=== PATIENT | male | born 1975 | race Caucasian/White ===

== ENCOUNTER 2019-11-13 11:11 | Emergency (ER) | payer OTHER ==
[2019-11-13 12:13] LABS: Absolute Lymphocytes (CBC) 2.7 K/uL (0.7-4.9); Basophils % 0.5 % (0-1.3); Hematocrit 48.5 % (39.6-49.0); MPV 11.2 fL (7.6-11.3)
[2019-11-13] MEDS ORDERED: FENTANYL CITR 100 MCG/2 ML ONE (12:13)
[2019-11-13] MEDS ORDERED: NA CHLORIDE 0.9% 1,000 ML ONE (12:14)
[2019-11-13] MEDS ORDERED: CLINDAMYCIN 600MG/D5W 600 MG/50 ML BAG IV ONE (12:14)
[2019-11-13] MEDS ORDERED: LIDOCAINE 1% 20 ML MDV ONE (12:37)
--- NOTE | 2019-11-13 12:54 | EDPHYS ---
Physician Documentation [facility] Name: Gavin Mir Age: 44 yrs Sex: Male : 1975 Arrival Date: 11/13/2019 Time: 11:14 Bed 18 Private MD: Jerrell Farley P ED Physician Jaquan Meza HPI: 11/12 11:45 This 44 yrs old Male presents to ER via Unassigned with complaints of Back snw Problem, Sent By Dr. Farley. 11:45 Onset: The symptoms/episode began/occurred gradually, and became worse. Associated snw signs and symptoms: Pertinent positives: pain. Modifying factors: The patient symptoms are alleviated by nothing, the patient symptoms are aggravated by stimulation, pressure. The patient has experienced similar episodes in the past. The patient has been recently seen by a physician: Dr. Farley. Historical: - Allergies: 11:47 No Known Allergies; bp - Home Meds: 11:47 aspirin 81 mg Oral chew 1 tab once daily [Active]; losartan 50 mg oral tab 1 tab once bp daily [Active]; pravastatin 80 mg oral tab 1 tab once daily [Active]; - PMHx: 11:47 High Cholesterol; Hypertension; bp - Immunization history:: Adult Immunizations up to date. - Social history:: Smoking status: Patient denies any tobacco usage or history of. ROS: 11:44 Constitutional: Negative for fever, chills, and weight loss, Eyes: Negative for injury, snw pain, redness, and discharge, ENT: Negative for injury, pain, and discharge, Neck: Negative for injury, pain, and swelling, Cardiovascular: Negative for chest pain, palpitations, and edema, Respiratory: Negative for shortness of breath, cough, wheezing, and pleuritic chest pain, Abdomen/GI: Negative for abdominal pain, nausea, vomiting, diarrhea, and constipation, Back: Negative for injury and pain, : Negative for injury, bleeding, discharge, and swelling, MS/Extremity: Negative for injury and deformity, Neuro: Negative for headache, weakness, numbness, tingling, and seizure, Psych: Negative for depression, anxiety, suicide ideation, homicidal ideation, and hallucinations. 11:44 Skin: Positive for "Carbuncle" to right upper back. Exam: 11:43 Constitutional: This is a well developed, well nourished patient who is awake, alert, snw and in no acute distress. Head/Face: Normocephalic, atraumatic. Eyes: Pupils equal round and reactive to light, extra-ocular motions intact. Lids and lashes normal. Conjunctiva and sclera are non-icteric and not injected. Cornea within normal limits. Periorbital areas with no swelling, redness, or edema. ENT: Nares patent. No nasal discharge, no septal abnormalities noted. Tympanic membranes are normal and external auditory canals are clear. Oropharynx with no redness, swelling, or masses, exudates, or evidence of obstruction, uvula midline. Mucous membranes moist. Neck: Trachea midline, no thyromegaly or masses palpated, and no cervical lymphadenopathy. Supple, full range of motion without nuchal rigidity, or vertebral point tenderness. No Meningismus. Chest/axilla: Normal chest wall appearance and motion. Nontender with no deformity. No lesions are appreciated. Cardiovascular: Regular rate and rhythm with a normal S1 and S2. No gallops, murmurs, or rubs. Normal PMI, no JVD. No pulse deficits. Respiratory: Lungs have equal breath sounds bilaterally, clear to auscultation and percussion. No rales, rhonchi or wheezes noted. No increased work of breathing, no retractions or nasal flaring. Abdomen/GI: Soft, non-tender, with normal bowel sounds. No distension or tympany. No guarding or rebound. No evidence of tenderness throughout. Skin: Warm, dry with normal turgor. Normal color with no rashes, no lesions, and no evidence of cellulitis. MS/ Extremity: Pulses equal, no cyanosis. Neurovascular intact. Full, normal range of motion. Neuro: Awake and alert, GCS 15, oriented to person, place, time, and situation. Cranial nerves II-XII grossly intact. Motor strength 5/5 in all extremities. Sensory grossly intact. Cerebellar exam normal. Normal gait. Psych: Awake, alert, with orientation to person, place and time. Behavior, mood, and affect are within normal limits. 11:43 Back: ROM is normal, large abscessed cyst to right upper back, saw Dr. Farley and was sent to ED for surgical removal. Vital Signs: 11:43 BP 155 / 100; Pulse 89; Resp 16; Temp 98.3; Pulse Ox 98% ; Weight 86.18 kg; Height 5 bp ft. 7 in. (170.18 cm); 13:13 BP 128 / 79; Pulse 76; Resp 18; Pulse Ox 99% on R/A; em 11:43 Body Mass Index 29.76 (86.18 kg, 170.18 cm) bp MDM: 11:30 Patient medically screened. snw 12:55 Data reviewed: vital signs, nurses notes. Data interpreted: Pulse oximetry: on room air snw is 98 %. Interpretation: normal. Counseling: I had a detailed discussion with the patient and/or guardian regarding: the historical points, exam findings, and any diagnostic results supporting the discharge/admit diagnosis, the presence of at least one elevated blood pressure reading (>120/80) during this emergency department visit, the need for outpatient follow up, to return to the emergency department if symptoms worsen or persist or if there are any questions or concerns that arise at home. Response to treatment: the patient's symptoms have markedly improved after treatment. 11/12 11:47 Order name: CBC with Diff snw 11/12 11:47 Order name: Chem 7 snw 11/12 11:47 Order name: NPO; Complete Time: 11:56 snw 11/12 12:55 Order name: Wound dressing; Complete Time: 13:03 snw 11/12 12:55 Order name: Wound Care; Complete Time: 13:03 snw Administered Medications: Discontinued: NS 0.9% 1000 ml IV at 125 ml/hr continuous 12:14 Drug: fentaNYL (PF) 50 mcg Route: IVP; Site: right forearm; em 13:02 Follow up: Response: No adverse reaction; Marked relief of symptoms dm5 12:15 Drug: NS 0.9% 1000 ml Route: IV; Rate: 125 ml/hr; Site: right forearm; em 13:02 Follow up: IV Status: Order to discontinue infusion; IV Intake: 200ml dm5 12:15 Drug: Clindamycin 600 mg Route: IVPB; Infused Over: 30 mins; Site: right forearm; em 12:40 Follow up: Response: No adverse reaction; IV Status: Completed infusion; IV Intake: [id number] Disposition: 14:37 Co-signature as Attending Physician, Jaquan Meza MD. rn Disposition: 11/13/19 12:53 Discharged to Home. Impression: Cutaneous abscess of trunk. - Condition is Stable. - Discharge Instructions: Skin Abscess, Incision and Drainage, Care After. - Prescriptions for Mobic 7.5 mg Oral Tablet - take 1 tablet by ORAL route once daily take with food; 20 tablet. Doxycycline Hyclate 100 mg Oral Tablet - take 1 tablet by ORAL route every 12 hours; 20 tablet. - Medication Reconciliation Form, Thank You Letter, Antibiotic Education, Prescription Opioid Use form. - Follow up: Jerrell Farley MD; When: 1 week; Reason: Recheck today's complaints, Continuance of care, Re-evaluation by your physician. Follow up: Emergency Department; When: As needed; Reason: Fever > 102 F, Worsening of condition. Signatures: Dispatcher [employer] EDMS Elvira Pacheco, ORDER SELECTOR-C ORDER SELECTOR-Csnw Raf Mccauley, RN RN Jaquan Webster MD MD rn Peltier, Brian, RN RN bp Markwardt, Deana RN dm5 Corrections: (The following items were deleted from the chart) 13:28 12:53 11/13/2019 12:53 Discharged to Home. Impression: Cutaneous abscess of trunk. em Condition is Stable. Forms are Medication Reconciliation Form, Thank You Letter, Antibiotic Education, Prescription Opioid Use. Follow up: Jerrell Farley; When: 1 week; Reason: Recheck today's complaints, Continuance of care, Re-evaluation by your physician. Follow up: Emergency Department; When: As needed; Reason: Fever > 102 F, Worsening of condition. snw
--- NOTE | 2019-11-13 12:54 | ER ---
Nurse's Notes [facility] Name: Gavin Mir Age: 44 yrs Sex: Male : 1975 Arrival Date: 11/13/2019 Time: 11:14 Bed 18 Private MD: Jerrell Farley P Diagnosis: Cutaneous abscess of trunk Presentation: 11/12 11:43 Chief complaint: Patient states: SENT FROM SURGERY CLINIC BY [facility] [place] FOR SURGICAL I\T\D bp OF R CLAVICLE CARBUNCLE. Coronavirus screen: Patient denies fever greater than 100.4F, cough, shortness of breath, or difficulty breathing. Ebola Screen: No symptoms or risks identified at this time. Initial Sepsis Screen: Does the patient meet any 2 criteria? No. Patient's initial sepsis screen is negative. Does the patient have a suspected source of infection? No. Patient's initial sepsis screen is negative. Risk Assessment: Do you want to hurt yourself or someone else? Patient reports no desire to harm self or others. 11:43 Method Of Arrival: Ambulatory bp 11:43 Acuity: FLOR 3 bp Historical: - Allergies: 11:47 No Known Allergies; bp - Home Meds: 11:47 aspirin 81 mg Oral chew 1 tab once daily [Active]; losartan 50 mg oral tab 1 tab once bp daily [Active]; pravastatin 80 mg oral tab 1 tab once daily [Active]; - PMHx: 11:47 High Cholesterol; Hypertension; bp - Immunization history:: Adult Immunizations up to date. - Social history:: Smoking status: Patient denies any tobacco usage or history of. Screenin:10 Abuse screen: Denies threats or abuse. Nutritional screening: No deficits noted. em Tuberculosis screening: No symptoms or risk factors identified. Fall Risk None identified. Assessment: 12:10 General: Appears in no apparent distress. comfortable, Behavior is calm, cooperative, em appropriate for age, Denies fever. Pain: Complains of pain in right subscapular area Pain currently is 9 out of 10 on a pain scale. Neuro: Level of Consciousness is awake, alert, obeys commands, Oriented to person, place, time, situation, Appropriate for age. Cardiovascular: Capillary refill < 3 seconds Patient's skin is warm and dry. Respiratory: Airway is patent Respiratory effort is even, unlabored, Respiratory pattern is regular, symmetrical. Derm: Skin is intact, is healthy with good turgor, Skin is pink, warm \T\ dry. Abscess located on right subscapular area is golf ball sized. Musculoskeletal: Capillary refill < 3 seconds, Range of motion: intact in all extremities. 12:40 Reassessment: Dr. Farley at bedside. em Vital Signs: 11:43 BP 155 / 100; Pulse 89; Resp 16; Temp 98.3; Pulse Ox 98% ; Weight 86.18 kg; Height 5 bp ft. 7 in. (170.18 cm); 13:13 BP 128 / 79; Pulse 76; Resp 18; Pulse Ox 99% on R/A; em 11:43 Body Mass Index 29.76 (86.18 kg, 170.18 cm) bp ED Course: 11:14 Patient arrived in ED. ag5 11:14 Jerrell Farley MD is Private Physician. ag5 11:30 Elvira Pacheco FNP-C is [facility]. snw 11:30 Jaquan Meza MD is Attending Physician. snw 11:43 Shady Lubin, RN is Primary Nurse. bp 11:45 Raf Mccauley, RN is Primary Nurse. em 11:45 Triage completed. bp 12:07 Initial lab(s) drawn, by mo, sent to lab. Inserted saline lock: 20 gauge in right em1 forearm, using aseptic technique. Blood collected. 12:10 Patient has correct armband on for positive identification. Bed in low position. Call em light in reach. Side rails up X2. Pulse ox on. NIBP on. 12:45 Assist provider with I \T\ D: of an abscess on right sub scapular area Set up I\T\D tray. em Performed by Jerrell Farley MD Wound packed. 4X4s, Dressing with 4X4s, tape Patient tolerated well. 12:53 Jerrell Farley MD is Referral Physician. snw 13:22 IV discontinued, intact, bleeding controlled, No redness/swelling at site. Pressure em dressing applied. Administered Medications: Discontinued: NS 0.9% 1000 ml IV at 125 ml/hr continuous 12:14 Drug: fentaNYL (PF) 50 mcg Route: IVP; Site: right forearm; em 13:02 Follow up: Response: No adverse reaction; Marked relief of symptoms dm5 12:15 Drug: NS 0.9% 1000 ml Route: IV; Rate: 125 ml/hr; Site: right forearm; em 13:02 Follow up: IV Status: Order to discontinue infusion; IV Intake: 200ml dm5 12:15 Drug: Clindamycin 600 mg Route: IVPB; Infused Over: 30 mins; Site: right forearm; em 12:40 Follow up: Response: No adverse reaction; IV Status: Completed infusion; IV Intake: [id number] Intake: 12:40 IV: 50ml; Total: 50ml. dm5 13:02 IV: 200ml; Total: 250ml. dm5 Outcome: 12:53 Discharge ordered by . snw 13:26 Discharged to home ambulatory. em 13:26 Condition: good 13:26 Discharge instructions given to patient, Instructed on discharge instructions, follow up and referral plans. medication usage, Demonstrated understanding of instructions, follow-up care, medications, Prescriptions given X 2. 13:28 Patient left the ED. em Signatures: Judith Quintana RN RN dm5 Elvira Pacheco, RECONCILIATION ANALYST-C RECONCILIATION ANALYST-Csnw Raf Mccauley, RN Low Guzman em1 Shady Lubin RN RN Kevon Elam [facility]
--- NOTE | 2019-11-13 13:13 | P.HP ---
Date of Service: 11/13/19 PC: This 44-year-old male presented to the emergency room with a large inflamed abscess on his back. HPC: Patient has had a 4 number months. Has grown in size. Now is causing intense pressure, redness and erythema around it. PSHx: NA SOC: Allergic to heal ibuprofen SYS REVIEW: Otherwise healthy male O/E awake alert uncomfortable HEENT: WNL Chest: Chest movement equal bilaterally ABD: Intact LOCO: Has a large abscess measuring approximately 3.5 cm on the upper right portion of his shoulder posteriorly. Has limitation of movement. DATA: Elevated white cell count, but is afebrile IMPRESSION: Infected sebaceous cyst PLAN: This patient who is mentally challenged, presents with a abscess on his back. I have explained to him and his mother that we will do it here in the emergency room. Incision, drainage, and debridement of the area is what I recommend. They understand and want to proceed. The risks of the surgery including bleeding, infection, recurrence and need for further surgeries and procedures was outlined.
--- NOTE | 2019-11-13 13:15 | P.OP ---
Preoperative diagnosis: Abscess sebaceous cyst on the back, 3.5 cm in size Postoperative diagnosis: The same Primary procedure: Incision, drainage, sharp debridement of abscess Anesthesia: Local Estimated blood loss: Less than 10 cc Specimen: Nothing was sent Operative Technique: In the ER the patient was rolled to the left lateral position with a Betadine solution. After surgical time-out, the area was infiltrated 1% lidocaine. A skin incision was made. This brought down through the skin and subcutaneous tissue. We encounter a large bout of thick infected sebaceous material with a foul smelling odor. This was sharply debrided from the surrounding abscess cavity. A 2. Nylon was placed into the wound and brought out more laterally and tied on itself to keep the area open and draining during the postoperative period. At the end of the procedure he was in a stable condition when sent to the recovery room. Needle sponge and instrument count were correct. Complications: None Drain(s): Other (2. Nylon) Transferred to: Recovery Room Condition: Good
[2019-11-13 13:35] VITALS: TEMP 98.3
[2019-11-13 13:36] VITALS: BP 128/79; O2SAT 99
== END 2019-11-13 13:28 | disposition home or self-care (01) ==
LOC: ER 11:11
PROC: 0J970ZZ Drainage of Back Subcutaneous Tissue and Fascia, Open Approach (ICD-10-PCS; principal; 2019-11-13)
DX: L02.212 Cutaneous abscess of back [any part, except buttock and flank] (principal); I10 Essential (primary) hypertension; E78.00 Pure hypercholesterolemia, unspecified; Z79.82 Long term (current) use of aspirin
CPT/HCPCS: 96365; 85025; 80048; 36415; 96375; 99284; 10060; J3010; J7030